=== PATIENT | female | born 1975 | race Caucasian/White ===

== ENCOUNTER 2016-10-27 17:12 | Emergency (ER) | payer OTHER ==
--- NOTE | ~2016-10-27 | CR181 ---
[facility]. [facility] A Service of [facility] & [facility] RADIOLOGY TEXT RESULTS PATIENT: DUANE METZ LOCATION: SED : 71 UNIT #: [id number] AGE: [address]: Rossy Jones APRN SEX: F ORDER DR: [id number] [address] [address] [id number] E MR#: [id number] Acc #: [id number] NAME: DUANE METZ : 1975 SEX: F STUDY DATE/TIME: 10/27/2016 17:11 UNIT: SED ROOM: STUDY DESCRIPTION: CR Lumbar Spine 2 or 3 Views Attending Physician: Rossy Jones A.P.R.N. Ordering Physician: Rossy Dos Santos A.P.R.N. Primary Care Physician: No Primary Care Physician MEDICAL IMAGING REPORT This report is preliminary unless electronic signature is present. EXAM Lumbar spine 3 views HISTORY 38-year-old female back and hip pain x1 month, fell missing 3 steps. FINDINGS AP lateral and cone down lateral views of lumbar spine demonstrates no fracture. Mild dextrocurvature lumbar spine. Increased density is seen along the L1-2 disc space which may represent disc calcification nonspecific. No significant disc space narrowing. No spondylolysis or spondylolisthesis. SI joints unremarkable. IMPRESSION 1. No acute fracture deformity. No significant degenerative change. 2. Mild dextrocurvature lumbar spine with nonspecific L1-2 disc space calcification. Dictated by... Julio Gagnon M.D. THIS IS AN ELECTRONICALLY VERIFIED REPORT Julio Gagnon M.D. at 10/30/2016 7:28 AM GERMAN/ciro TD: 10/28/2016 05:35 JOB #: [id number] MEDICAL IMAGING REPORT Page 1 of 1
--- NOTE | ~2016-10-27 | CR150 ---
[facility]. [facility] A Service of [facility] & [facility] RADIOLOGY TEXT RESULTS PATIENT: DUANE METZ LOCATION: SED : 71 UNIT #: [id number] AGE: [address]: Rossy Jones APRN SEX: F ORDER DR: [id number] [address] [address] [id number] E MR#: [id number] Acc #: [id number] NAME: DUANE METZ : 1975 SEX: F STUDY DATE/TIME: 10/27/2016 17:11 UNIT: SED ROOM: STUDY DESCRIPTION: CR Hip Min 2 Views Lt Attending Physician: Rossy Jones A.P.R.N. Ordering Physician: Rossy Dos Santos A.P.R.N. Primary Care Physician: No Primary Care Physician MEDICAL IMAGING REPORT This report is preliminary unless electronic signature is present. EXAM Left hip 10/27/2016 HISTORY 41-year-old female with left hip pain status post fall 1 month ago. COMPARISON None. FINDINGS 2 views of the left hip demonstrate no acute fracture or dislocation. Bony pelvis, sacrum, and SI joints are intact. Soft tissues are unremarkable. IMPRESSION Unremarkable left hip. Dictated by... Connor Zacarias M.D. THIS IS AN ELECTRONICALLY VERIFIED REPORT Connor Zacarias M.D. at 10/28/2016 7:03 AM ROBER/ciro TD: 10/28/2016 05:12 JOB #: [id number] MEDICAL IMAGING REPORT Page 1 of 1
[~2016-10-27 17:12] MED LIST: DESYREL50 MG PO; OMEPRAZOLE20 M2 PO
== END 2016-10-27 18:11 | disposition home or self-care (01) ==
LOC: SED 17:12
DX: S09.11XA Strain of muscle and tendon of head, initial encounter (principal); S39.012A Strain of muscle, fascia and tendon of lower back, initial encounter; F17.210 Nicotine dependence, cigarettes, uncomplicated; J44.9 Chronic obstructive pulmonary disease, unspecified; Z90.710 Acquired absence of both cervix and uterus; W10.9XXA Fall (on) (from) unspecified stairs and steps, initial encounter; Y92.009 Unspecified place in unspecified non-institutional (private) residence as the place of occurrence of the external cause
CPT/HCPCS: 72100; 73502; 99283; 99284